=== PATIENT | male | born 1960 | race Caucasian/White ===

== ENCOUNTER 2021-05-04 12:11 | Emergency (ER) | payer MEDICAID ==
[~2021-05-04] VITALS: Ht 170.2 cm; Wt 81.6 kg
[2021-05-04 12:30] VITALS: BP_SYST 167
--- NOTE | 2021-05-04 12:30 | NUR ---
Pt to bed 4 for evaluation. Report given to JOSHUA Arredondo who will assume care.
--- NOTE | 2021-05-04 12:36 | NUR ---
PT COMES TO ER AFTER HIS PMD TOLD HIM TO HAVE BLOOD WORK DONE AND COME TO ER FOR KIDNEY CONCERNS. PT ASYMPTOMATIC AT THIS TIME. RESP EVEN AND UNLABORED, ON RA @99%. DENIES ANY N/V/D. SKIN W/D/I. PT DOES HAVE EXTENSIVE CARDIAC HISTORY WITH A RECENT QUADRUPLE OPEN HEART SURGERY AND HTN. EKG BEING DONE AT THIS TIME.
--- NOTE | 2021-05-04 12:40 | NUR ---
DR NEWTON IN ROOM FOR EXAM
[2021-05-04 13:00] LABS: BASOPHILS % (AUTO) 0.5 % (0.0-2.0); EOSINOPHILS # (AUTO) 0.1 K/uL (0.0-0.4); EOSINOPHILS % (AUTO) 1.3 % (0.0-4.0); HEMATOCRIT 44.6 % (36-54); HEMOGLOBIN 14.8 g/dL (14.0-18.0); LYMPHOCYTES # (AUTO) 0.9 K/uL (1.0-5.5); LYMPHOCYTES % (AUTO) 11.8 % (20.5-51.5); MEAN CORPUSCULAR HEMOGLOBIN 29 pg (27-31); MEAN CORPUSCULAR HGB CONC 33 % (32-36); MEAN CORPUSCULAR VOLUME 89 fL (79.0-98.0); MONOCYTES # (AUTO) 0.5 K/uL (0.0-1.0); MONOCYTES % (AUTO) 6.1 % (1.7-9.3); NEUTROPHILS # (AUTO) 6.3 K/uL (1.8-7.7); NEUTROPHILS % (AUTO) 80.3 % (40.0-70.0); PLATELET COUNT (AUTO) 197 K/uL (130-430); RED BLOOD CELL COUNT(AUTO) 5.04 MIL/uL (4.2-6.2); RED CELL DISTRIBUTION WIDTH 13.9 % (9.0-15.0); WHITE BLOOD COUNT (AUTO) 7.9 K/uL (4.8-10.8)
--- NOTE | 2021-05-04 13:19 | NUR ---
NO ACUJUTE CHANGES IN CONDITION, PT RESTING ON GUERNEY. VSS. DENIES ANY CP. WAITING FOR FURTHERTEST RESULTS.
[2021-05-04 13:34] LABS: ALANINE AMINOTRANSFERASE 25 U/L (12-78); ANION GAP 9 (5-15); ASPARTATE AMINOTRANSFERASE 27 U/L (10-37); CALCIUM 9.5 mg/dL (8.4-11.0); CHLORIDE 106 mmol/L (98-107); CREATININE 1.85 mg/dL (0.55-1.30); GLUCOSE 123 mg/dL (70-99); POTASSIUM 4.2 mmol/L (3.5-5.1); SODIUM SERUM 141 mmol/L (136-145); TOTAL BILIRUBIN 0.5 mg/dL (0.0-1.0); UREA NITROGEN, BLOOD 32 mg/dL (8-21)
[2021-05-04 13:41] LABS: GFR AFRICAN AMERICAN 48 mL/min (>90)
--- NOTE | 2021-05-04 14:48 | NUR ---
Patient given written and verbal discharge instructions and verbalizes understanding. ER MD discussed with patient the results and treatment provided. Patient in stable condition. ID arm band removed. Patient educated on pain management and to follow up with PMD. Pain Scale [0]. Opportunity for questions provided and answered. Medication side effect fact sheet provided.
[2021-05-04 14:49] VITALS: BP_SYST 142
== END 2021-05-04 14:48 | disposition home or self-care (01) ==
LOC: SED 12:11
DX: I16.0 Hypertensive urgency (principal); I12.9 Hypertensive chronic kidney disease with stage 1 through stage 4 chronic kidney disease, or unspecified chronic kidney disease; N18.9 Chronic kidney disease, unspecified; Z88.0 Allergy status to penicillin
CPT/HCPCS: 36415; 80053; 84484; 85025; 93005; 99284